=== PATIENT | female | born 1955 | race Caucasian/White ===

== ENCOUNTER 2023-01-02 12:01 | Emergency (ER) | payer OTHER ==
[2023-01-02 12:15] VITALS: BP 188/107; PULSE 106; RESP 18; TEMP 97.7; BMI 31.1
== END 2023-01-02 12:35 | disposition home or self-care (01) ==
LOC: FER 12:01
DX: S09.93XA Unspecified injury of face, initial encounter (principal); Y04.8XXA Assault by other bodily force, initial encounter
CPT/HCPCS: 99283-25